=== PATIENT | female | born 1965 | race Caucasian/White ===

== ENCOUNTER 2016-11-18 14:07 | Day surgery (SDC) | payer OTHER ==
[~2016-11-18] VITALS: Ht 157.5 cm; Wt 53.7 kg
[~2016-11-18 14:07] MED LIST: AMLO2.5T78 PO; IBUP-1542 PO; LISI10TA2 PO
[2016-11-18 15:52] VITALS: Ht 157.5 cm; Wt 53.7 kg
[2016-11-18 15:59] VITALS: BP 16/88; PULSE 81; RESP 18
[2016-11-18] MEDS ORDERED: AMLODIPINE BESYLATE (16:04)
[2016-11-18] MEDS ORDERED: LISINOPRIL (16:04)
[2016-11-18] MEDS ORDERED: MIDAZOLAM 1 MG/ML 2 ML INJ ONE ×4 (17:10)
[2016-11-18] MEDS ORDERED: FENTAnyl 50 MCG/ML VIAL ONE (17:11)
[2016-11-18 17:15] VITALS: BP 138/76; PULSE 74; RESP 14
--- NOTE | 2016-11-22 12:50 | GILP ---
Erika BRANNON PROCEDURE DATE OF PROCEDURE: 11/18/2016 PROCEDURE PERFORMED: Colonoscopy and biopsy. SURGEON: Tonia Castellanos MD PREOPERATIVE DIAGNOSIS: Screening colonoscopy. POSTOPERATIVE DIAGNOSES: 1. Colonoscopy all the way to the cecum. 2. A 3 cm submucosal mass at 70 cm from the anus, and multiple biopsies were taken for histopathology. 3. The area was tattooed with Ana ink. 4. Internal hemorrhoids. INDICATION: Ms. Kerry Wells is a 51-year-old female patient, who was scheduled for screening colonoscopy. The procedure and possible complications were well explained to the patient. She understood and consented to the procedure. DESCRIPTION OF PROCEDURE: Under the influence of fentanyl and Versed, the colonoscope was carefully introduced into the rectum. Under direct vision, it was advanced all the way to the cecum. FINDINGS: The patient was noted to have a 3 cm submucosal which, which was polypoid in nature at 70 cm from the anus. Multiple biopsies were taken for histopathology. The area was tattooed with Ana ink. The patient once again noted to have internal hemorrhoids. She tolerated the procedure very well. There were no complications from the procedure. At the end of the procedure, she was awake with stable vital signs and she was discharged home in the care of her family. IMPRESSION: 1. Colonoscopy all the way to the cecum. 2. Polypoid submucosal 3 cm mass at 70 cm from the anus and multiple biopsies were taken for histopathology. 3. The area was tattooed with Ana ink. 4. Internal hemorrhoids. PLAN: 1. Await histopathology report. 2. The timing for next colonoscopy will be decided after reviewing the biopsy report. Dictated By: MD SRIKANTH Eaton/rudi/ec /Document#: [id number] Conf#:[id number] DID#: [id number]
== END 2016-11-18 17:39 | disposition home or self-care (01) ==
LOC: GIL 14:07
PROVIDERS: ATTEND Internal Medicine Gastroenterology
DX: Z12.11 Encounter for screening for malignant neoplasm of colon (principal); K64.8 Other hemorrhoids; K63.5 Polyp of colon; I10 Essential (primary) hypertension
CPT/HCPCS: 45380; 45381; 88305; J2250; J3010; Z7610

== ENCOUNTER 2017-03-09 05:40 | Day surgery (SDC) | payer OTHER ==
[~2017-03-09] VITALS: Ht 157.5 cm; Wt 55.2 kg
[~2017-03-09 05:40] MED LIST changes: -AMLO2.5T78 PO; +AMLODIPINE BESYLATE; -IBUP-1542 PO; -LISI10TA2 PO; +LISINOPRIL
[2017-03-09 06:30] VITALS: Ht 157.5 cm; Wt 55.2 kg
[2017-03-09 07:06] VITALS: BP 147/81; PULSE 67; RESP 9
[2017-03-09] MEDS ORDERED: MIDAZOLAM 1 MG/ML 2 ML INJ ONE (07:45)
[2017-03-09] MEDS ORDERED: FENTAnyl 50 MCG/ML VIAL ONE (07:45)
--- NOTE | 2017-03-09 07:47 | OPPN ---
Date/Time of Note Date/Time of Note DATE: 03/09/17 TIME: 07:45 Operative Report Preoperative Diagnosis Abdominal pain Chronic heartburn Postoperative Diagnosis Hiatal hernia and gastroesophageal reflux disease Gastritis with erosions Operation/Procedure Performed Esophagogastroduodenoscopy and biopsy Surgeon see signature line transportation assistant None Anesthesia: moderate sedation Estimated blood loss: none Transfusion Required none Specimen Gastric mucosal biopsy Grafts/Implants none Complications none LILLI GILES MD Mar 09, 2017 07:47
--- NOTE | 2017-03-09 07:47 | OPPN ---
Date/Time of Note Date/Time of Note DATE: 03/09/17 TIME: 07:45 Operative Report Preoperative Diagnosis Abdominal pain Chronic heartburn Postoperative Diagnosis Hiatal hernia and gastroesophageal reflux disease Gastritis with erosions Operation/Procedure Performed Esophagogastroduodenoscopy and biopsy Surgeon see signature line physiotherapy assistant None Anesthesia: moderate sedation Estimated blood loss: none Transfusion Required none Specimen Gastric mucosal biopsy Grafts/Implants none Complications none LILLI GILES MD Mar 09, 2017 07:47
--- NOTE | 2017-03-09 07:47 | OPPN ---
Date/Time of Note Date/Time of Note DATE: 03/09/17 TIME: 07:45 Operative Report Preoperative Diagnosis Abdominal pain Chronic heartburn Postoperative Diagnosis Hiatal hernia and gastroesophageal reflux disease Gastritis with erosions Operation/Procedure Performed Esophagogastroduodenoscopy and biopsy Surgeon see signature line assistant professor of english None Anesthesia: moderate sedation Estimated blood loss: none Transfusion Required none Specimen Gastric mucosal biopsy Grafts/Implants none Complications none LILLI GILES MD Mar 09, 2017 07:47
[2017-03-09 08:00] VITALS: BP 131/85; RESP 14
--- NOTE | 2017-03-10 08:39 | GILP ---
DATE OF PROCEDURE: NAME OF PROCEDURES: Esophagogastroduodenoscopy and biopsy. SURGEON: Lilli Castellanos MD. PREOPERATIVE DIAGNOSES: 1. Abdominal pain. 2. Chronic heartburn. POSTOPERATIVE DIAGNOSES: 1. Hiatal hernia. 2. Gastroesophageal reflux disease. 3. Gastritis with erosions. 4. Gastric mucosal biopsies were taken for Helicobacter pylori test. INDICATION FOR THE PROCEDURE: Ms. Kerry Wells is a 51-year-old female patient who had upper abdomin al pain and chronic heartburn, not responding to therapy. Patient was scheduled for endoscopic exam ination for further evaluation. The procedure and possible complications are well explained to the patient. She understood and cons ented to the procedure. DESCRIPTION OF PROCEDURE: Under the influence of fentanyl and Versed, the gastroscope was carefully introduced into the esophagus, and under direct vision, it was advanced to the stomach and through the pylorus into the duodenal bulb and descending duodenum. FINDINGS: ESOPHAGUS: The patient had hiatal hernia and gastroesophageal reflux disease. STOMACH: She had gastritis with erosions. Gastric mucosal biopsies were taken for H. pylori test. DUODENUM: Normal. She tolerated the procedure very well. There was no complication from the procedure. At the end of the procedure, she was awake with stable vital signs and she was discharged home to the care of her family. IMPRESSION: Please see postoperative diagnoses. PLAN: 1. Omeprazole 40 mg p.o. q.a.m. 2. Await H. pylori test report. Dictated By: LILLI DUKE/LUPIS Conf#: [id number] DID#: [id number]
== END 2017-03-09 10:16 | disposition home or self-care (01) ==
LOC: GIL 05:40
PROVIDERS: ATTEND Internal Medicine Gastroenterology
DX: K44.9 Diaphragmatic hernia without obstruction or gangrene (principal); K21.9 Gastro-esophageal reflux disease without esophagitis; K29.60 Other gastritis without bleeding; I10 Essential (primary) hypertension
CPT/HCPCS: 43239; 87081; J2250; J3010; Z7610